=== PATIENT | male | born 1950 | race Caucasian/White ===

== ENCOUNTER 2019-11-13 12:02 | Emergency (ER) | payer BC, SELFPAY ==
[2019-11-13 12:16] LABS: #Basophils 0.1 thou/uL (0.0-0.2); #Eosinphils 0.2 thou/uL (0.0-0.7); #Lymphocytes 4.2 thou/uL (1.20-3.40); #Monocytes 1.2 thou/uL (0.11-0.59); #Neutrophils 6.9 thou/uL (1.40-6.50); %Basophils 0.6 % (0.0-1.0); %Eosinophils 1.8 % (0.0-10.0); %Lymphocytes 33.1 % (21.0-51.0); %Monocytes 9.2 % (0.0-10.0); %Neutrophils 55.3 % (42.0-75.0); Hemoglobin 14.8 g/dL (14.0-18.0); Mean Corpuscular HGB CONC 31.2 g/dL (32.0-36.0); Mean Corpuscular Volume 99.4 fL (78.0-98.0); Mean Platelet Volume 7.6 fL (7.4-10.4); Platelet Count 300 thou/uL (130-400); RBC Distribution Width 12.8 % (11.5-14.5); Red Blood Cell (RBC) Count 4.78 mill/uL (4.70-6.10); White Blood Cell (WBC) Count 12.6 thou/uL (4.8-10.8)
[2019-11-13 12:21] LABS: INR-International Normal Ratio 1.1; PTT 28.1 sec (22.9-36.1); Prothrombin Time 13.8 sec (12.0-14.7)
[2019-11-13] MEDS ORDERED: Nitroglycerin 2% Ointment 1 INCH/1 GM Packet ONE (12:21)
--- NOTE | 2019-11-13 12:23 | CT ---
CT BRAIN NONCONTRAST: DATE: 11/13/2019 HISTORY: 69-year-old male with acute stroke: Left-sided weakness and dysarthria. At 12:17 PM 11/13/2019, Dr. Cardenas gave verbal report to Dr. Raghavendra Tolentino FINDINGS: Several of the images are significantly degraded by patient motion. There is no evidence of acute int ra-axial or extra-axial hemorrhage. There is no midline shift or any other mass effect. There is no extra-axial fluid collection. There is no evidence of obstructive hydrocephalus. Calvarium is intact. IMPRESSION: No acute intracranial findings. .
[2019-11-13 12:28] LABS: ALT (SGPT) 18 U/L (8-55); AST (SGOT) 22 U/L (5-34); Albumin 4.3 g/dL (3.4-4.8); Alkaline Phosphatase 112 U/L (40-110); Anion Gap 16 mmol/L (10-20); BUN (Urea Nitrogen) 20 mg/dL (8.4-25.7); Bilirubin, Total 0.5 mg/dL (0.2-1.2); Calc. Creatinine Clearance 0 mL/min (70-130); Carbon Dioxide 21 mmol/L (23-31); Chloride 102 mmol/L (98-107); Estimated GFR-MDRD 43; Glucose 114 mg/dL (83-110); Protein, Total 7.3 g/dL (5.8-8.1); Sodium 135 mmol/L (136-145)
--- NOTE | 2019-11-13 12:36 | CT ---
CT CERVICAL SPINE NONCONTRAST: DATE: 11/13/2019 HISTORY: cervical trauma. 69-year-old male. Status post fall. FINDINGS: There are no jumped or perched facets. There is no evidence of acute fracture. The vertebral body hei ghts are maintained. There is no prevertebral soft tissue swelling. At C3-4 there is a moderate to large central and right-paracentral disc herniation protruding into the anterior aspect of the spinal canal, possibly impinging on the spinal cord. IMPRESSION: 1. No evidence of acute fracture or acute traumatic subluxation. 2. Moderate to large disc herniation at C3-4.
[2019-11-13] MEDS ORDERED: Labetalol HCl 100 MG/20 ML VIAL ONE (12:38)
--- NOTE | 2019-11-13 13:01 | RAD ---
EXAM: Single view of the chest HISTORY: Left-sided weakness and slurred speech COMPARISON: None FINDINGS: Single view of the chest shows a normal sized cardiomediastinal silhouette. Increased inte rstitial lung markings are present. There is no evidence of consolidation, mass, or pleural effusion. No acute osseous abnormality. IMPRESSION: No evidence of acute cardiopulmonary disease
[2019-11-13] MEDS ORDERED: Fentanyl 100 MCG/2 ML VIAL ONE (13:16)
[2019-11-13] MEDS ORDERED: Sodium Chloride 0.9% 1,000 ML ONE (13:31)
--- NOTE | 2019-11-14 07:19 | CT ---
CT ANGIOGRAM NECK WITH CONTRAST CT ANGIOGRAM BRAIN WITH CONTRAST: DATE: 11/13/2019 HISTORY: 69-year-old male with acute stroke: Dysarthria and left upper extremity weakness. At 1:02 PM 11/13/2019 Dr. Cardenas reported the right middle cerebral artery occlusion by thrombus by teleph one to Dr. Tolentino. TECHNIQUE: After IV contrast injection, arterial bolus chasing technique scan performed from top of aortic arch to vertex of head. Coronal and sagittal 3-D MIP reconstructions. FINDINGS: At the mid to distal portion of the M1 segment of the right middle cerebral artery, there is abrupt a bsence of contrast material representing thrombus. This results in nonopacification of M1 branches of the right MCA. The A1 and A2 segments of the bilateral ACAs, M1 segment of left MCA, bilateral carotid siphons, basi lar, bilateral P2 segments and left P1 segment of early years teacher, basilar, intracranial left vertebral, and bilateral internal carotid arteries, demonstrate no high-grade stenosis. The origin of the left vertebral artery is poorly visualized. The rest of the left vertebral is yamileth l. Right vertebral artery is diminutive and terminates in PICA. There is origin of the right [employer] EXAMINER. There is mild noncalcified atherosclerotic plaque in the proximal right internal carotid, and mild ca lcified and noncalcified atherosclerotic plaque proximal left internal carotid, causing minimal stenosis. No stenosis of mid and distal portions of bilateral common carotids. Origins of bilateral common carotid arteries, the entire brachiocephalic artery, and bilateral subcla vian arteries, cannot be evaluated due to poor visualization and insufficient contrast plus streak artifact from contrast bolus in adjacent veins. 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 2) mild atherosclerosis of bilateral proximal internal carotid arteries without significant stenosis.
== END 2019-11-13 13:00 | disposition short-term general hospital (02) ==
LOC: NAV ERS 12:02 → EDBD 12:02 → NAV ERS 13:00
DX: I66.01 Occlusion and stenosis of right middle cerebral artery (principal); I63.9 Cerebral infarction, unspecified; R29.810 Facial weakness; G81.91 Hemiplegia, unspecified affecting right dominant side; I48.91 Unspecified atrial fibrillation; S50.311A Abrasion of right elbow, initial encounter; S80.211A Abrasion, right knee, initial encounter; S80.811A Abrasion, right lower leg, initial encounter; Z79.82 Long term (current) use of aspirin; Z79.899 Other long term (current) drug therapy; V47.5XXA Car driver injured in collision with fixed or stationary object in traffic accident, initial encounter
CPT/HCPCS: 0042T; 36415; 70450; 70496; 70498; 71045; 72125; 80053; 84484; 85025; 85610; 85730; 93005; 94760; 96365; 96374; 96375; 96376; J2997; J3010; J7050